=== PATIENT | female | born 1980 | race Caucasian/White ===

== ENCOUNTER 2016-08-23 09:19 | Emergency (ER) | payer BC, OTHER ==
[~2016-08-23] VITALS: Ht 170.2 cm; Wt 82.0 kg
[2016-08-23 09:22] VITALS: BP 144/86
[2016-08-23] MEDS ORDERED: PRENATAL (09:37)
== END 2016-08-23 10:51 | disposition home or self-care (01) ==
LOC: ED 10:45
DX: O36.4XX0 Maternal care for intrauterine death, not applicable or unspecified (principal); Z3A.12 12 weeks gestation of pregnancy; O03.4 Incomplete spontaneous abortion without complication
CPT/HCPCS: 36415; 76801; 81003; 86901; 99285

== ENCOUNTER 2019-08-08 17:25 | Inpatient (IN) | payer BC ==
[~2019-08-08] VITALS: Ht 170.2 cm; Wt 85.0 kg
[~2019-08-08 17:25] MED LIST: PRENATAL
[2019-08-08] MEDS ORDERED: OXYTOCIN 30U/ 0.9% NaCL 500ML 500 ML IV PRN ×2 (17:53→18:18)
[2019-08-08] MEDS ORDERED: OXYTOCIN 30U/ 0.9% NaCL 500ML 500 ML IV ONE ×2 (17:53→18:18)
[2019-08-08] MEDS ORDERED: TERBUTALINE 1 MG/ML, 1ML IVPush PRN (18:00)
[2019-08-08] MEDS ORDERED: ONDANSETRON 2MG/ML, 2ML IVPush PRN ×2 (18:00→18:30)
[2019-08-08] MEDS ORDERED: SODIUM CHLORIDE FLUSH 10ML SYR IVF PRN (18:00)
[2019-08-08] MEDS ORDERED: RHOGAM FROM BLOOD BANK 1 NOTE EA IM/IV PRN ×2 (18:00→18:30)
[2019-08-08] MEDS ORDERED: PREN1TAB60 PO (18:05)
[2019-08-08 18:09] VITALS: BP 130/79
[2019-08-08] MEDS: LACTATED RINGERS 1,000 ML IV SCH ×2 (18:18→20:00)
[2019-08-08] MEDS: D5%-LACTATED RINGERS 1,000 ML IV SCH (18:18)
[2019-08-08] MEDS ORDERED: FENTANYL PF 100 MCG/2ML IVPush PRN ×2 (18:30)
[2019-08-08] MEDS ORDERED: ACETAMINOPHEN 325 MG TABLET PO PRN ×3 (18:30)
[2019-08-08] MEDS ORDERED: MISOPROSTOL 200 MCG TABLET PR PRN (18:30)
[2019-08-08] MEDS ORDERED: IBUPROFEN 600 MG TABLET PO PRN (18:30)
[2019-08-08] MEDS ORDERED: OXYcodone IR 5MG TABLET PO PRN ×4 (18:30)
[2019-08-08] MEDS ORDERED: DIPHENHYDRAMINE 50 MG CAPSULE PO PRN (18:30)
[2019-08-08] MEDS ORDERED: CALCIUM CARBONATE 500 MG TAB.CHEW PO PRN (18:30)
[2019-08-08] MEDS ORDERED: SODIUM CITRATE/CITRIC ACID 30 ML UDC PO PRN (18:30)
[2019-08-08 18:57] LABS: MICROSCOPIC NOT IND
[2019-08-08 19:59] LABS: BASOPHILS # (AUTO) 0.02 x10^3/uL (0-0.1); BASOPHILS % (AUTO) 0 % (0-1); EOSINOPHILS # (AUTO) 0.02 x10^3/uL (0-0.4); EOSINOPHILS % (AUTO) 0 % (1-7); LYMPHOCYTES # (AUTO) 2.12 x10^3/uL (1-3.4); LYMPHOCYTES % (AUTO) 17 % (22-44); MD NO; MEAN CORPUSCULAR HEMOGLOBIN 30.7 pg (27.0-34.8); MEAN CORPUSCULAR HGB CONC 33.5 g/dL (32.4-35.8); MEAN CORPUSCULAR VOLUME 91.8 fL (80-100); MEAN PLATELET VOLUME 9.4 fL (7.4-10.4); MONOCYTES # (AUTO) 0.45 x10^3/uL (0.2-0.8); MONOCYTES % (AUTO) 4 % (2-9); NEUTROPHILS # (AUTO) 10.22 x10^3/uL (1.8-6.8); NEUTROPHILS % (AUTO) 80 % (42-75); PLATELET COUNT 209 x10^3/uL (130-400); RED BLOOD COUNT 4.24 x10^6/uL (3.82-5.3); RED CELL DISTRIBUTION WIDTH 13.6 % (9.6-15.2)
[2019-08-08] MEDS ORDERED: MISOPROSTOL 200 MCG TABLET ONE (20:39)
[2019-08-08] MEDS ORDERED: MISOPROSTOL 100 MCG TABLET VG PRN (21:30)
[2019-08-09] MEDS ORDERED: MISOPROSTOL 200 MCG TABLET ONE ×3 (00:50→04:45)
[2019-08-09] MEDS ORDERED: FENTANYL PF 100 MCG/2ML ONE ×3 (01:28→04:47)
[2019-08-09] MEDS: FENTANYL PF 100 MCG/2ML IVPush PRN ×4 (01:31→05:05)
[2019-08-09 01:44] VITALS: BP 124/72
[2019-08-09] MEDS: LACTATED RINGERS 1,000 ML IV SCH ×3 (01:53→04:56)
[2019-08-09] MEDS: D5%-LACTATED RINGERS 1,000 ML IV SCH (02:13)
[2019-08-09] MEDS ORDERED: LIDOCAINE 1%, 20ML ONE (04:45)
[2019-08-09] MEDS ORDERED: OXYTOCIN 30U/ 0.9% NaCL 500ML 500 ML ONE (04:46)
[2019-08-09] MEDS ORDERED: ONDANSETRON 2MG/ML, 2ML ONE (05:31)
[2019-08-09] MEDS ORDERED: morphine SULFATE 10 MG/ML, 1ML ONE (07:19)
[2019-08-09] MEDS ORDERED: MORPHINE SULFATE 4 MG/ML, 1ML IVPush PRN (07:30)
[2019-08-09] MEDS ORDERED: IBUPROFEN 600 MG TABLET ONE (12:03)
[2019-08-09 12:28] LABS: AMPHETAMINE SCREEN, URINE Negative (Negative); BARBITURATE SCREEN, URINE Negative (Negative); BENZODIAZEPINE SCREEN, URINE Negative (Negative); CANNABINOID SCREEN, URINE Negative (Negative); COCAINE SCREEN, URINE Negative (Negative); METHADONE SCREEN, URINE Negative (Negative); OPIATE SCREEN, URINE Positive (Negative)
== END 2019-08-09 12:15 | disposition home or self-care (01) | DRG 807 ==
LOC: LDIP 17:25
PROVIDERS: ADMIT Obstetrics & Gynecology; ATTEND Obstetrics & Gynecology
PROC: 10E0XZZ Delivery of Products of Conception, External Approach (ICD-10-PCS; principal; 2019-08-09)
PROC: 3E033VJ Introduction of Other Hormone into Peripheral Vein, Percutaneous Approach (ICD-10-PCS; 2019-08-09)
DX: O36.4XX0 Maternal care for intrauterine death, not applicable or unspecified (principal); Z37.1 Single stillbirth; O77.0 Labor and delivery complicated by meconium in amniotic fluid; Z82.49 Family history of ischemic heart disease and other diseases of the circulatory system; Z86.72 Personal history of thrombophlebitis; Z3A.23 23 weeks gestation of pregnancy; Z90.49 Acquired absence of other specified parts of digestive tract
CPT/HCPCS: 36415; 76815; 80307; 81003; 85025; 85460; 86644; 86645; 86694; 86695; 86696; 86747; 86762; 86777; 86778; 86850; 86900; 88305; G0378; J2405; J3010; J2270; J2590; J7120